=== PATIENT | male | born 1985 | race Caucasian/White ===

== ENCOUNTER 2018-04-09 12:50 | Emergency (ER) | payer OTHER ==
[~2018-04-09] VITALS: Ht 162.6 cm; Wt 62.1 kg
[2018-04-09 12:55] VITALS: BP 132/87
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
--- NOTE | 2018-04-09 14:00 | NUR ---
Patient being evaluated by physician at bedside.
--- NOTE | 2018-04-09 14:20 | NUR ---
PT GIVEN CRUTCHES AND INSTRUCTIONS ON HOW TO USE THEM
[2018-04-09 14:26] VITALS: BP 130/85
--- NOTE | 2018-04-09 14:36 | NUR ---
Note josvi in EDM - 04/09/18 at 1439 by MEDFL Patient discharged with v/s stable. Written and verbal after care instructions given and explained. Patient alert, oriented and verbalized understanding of instructions. Ambulatory with steady gait. All questions addressed prior to discharge. ID band removed. Patient advised to follow up with PMD. Rx of NAPROSYN given. Patient educated on indication of medication including possible reaction and side effects. Opportunity to ask questions provided and answered.
== END 2018-04-09 14:26 | disposition home or self-care (01) ==
LOC: MED 12:50
DX: S83.91XA Sprain of unspecified site of right knee, initial encounter (principal); V00.131A Fall from skateboard, initial encounter; Y93.51 Activity, roller skating (inline) and skateboarding; Y92.89 Other specified places as the place of occurrence of the external cause; Y99.8 Other external cause status
CPT/HCPCS: 73562; 73700; 99284; Q0092